=== PATIENT | female | born 1945 | race Asian ===

== ENCOUNTER 2024-02-05 10:13 | Emergency (ER) | payer OTHER ==
[~2024-02-05] VITALS: Ht 160 cm; Wt 59.0 kg
[2024-02-05 10:18] VITALS: O2SAT 98
[2024-02-05 11:16] LABS: BASOPHILS % 0.3 % (0.0-2.0); EOSINOPHILS % 0.3 % (0.0-5.0); HEMATOCRIT. 35.8 % (36.0-48.0); HEMOGLOBIN. 11.6 g/dL (12.0-16.0); LYMPHOCYTES % 7.1 % (20.0-50.0); MEAN CORPUSCULAR HEMOGLOBIN 30.1 pg (28.0-32.0); MEAN CORPUSCULAR HGB CONC 32.5 g/dL (31.0-37.0); MEAN CORPUSCULAR VOLUME 92.8 fL (81.0-99.0); MEAN PLATELET VOLUME 7.1 fl (7.4-10.4); MONOCYTES % 4.1 % (2.0-8.0); NEUTROPHILS % 88.2 % (40.0-76.0); PLATELET 177 x1000/uL (130-400); RED BLOOD CELL COUNT 3.85 mill/uL (4.2-5.4); RED CELL DISTRIBUTION WIDTH 13.5 % (11.6-14.6); WHITE BLOOD COUNT 12.3 x1000/uL (4.5-11.0)
[2024-02-05 11:20] LABS: CHLORIDE 102 mEq/L (98-107); POTASSIUM 3.9 mEq/L (3.5-5.1); SODIUM 138 mEq/L (136-145)
[2024-02-05 11:21] LABS: CALCIUM 9.8 mg/dL (8.7-10.4); CARBON DIOXIDE 27 mEq/L (21-32)
[2024-02-05 11:26] LABS: CREATININE 1.1 mg/dL (0.6-1.0); GLUCOSE 102 mg/dL (70-105); UREA NITROGEN BLOOD 11 mg/dL (9-23)
[2024-02-05 11:47] LABS: TROPONIN I HIGH SENSITIVITY 302 ng/L (3.0-34)
[2024-02-05] MEDS ORDERED: ACETAMINOPHEN 325MG TABLET PO PRN ×2 (13:15)
[2024-02-05] MEDS ORDERED: IPRATROPIUM/ALBUTEROL 0.5-3(2.5)MG/3ML NEB NEB PRN (13:15)
[2024-02-05] MEDS ORDERED: GUAIFENESIN 200MG/10ML SUGAR FREE UDC PO PRN (13:15)
[2024-02-05] MEDS ORDERED: NITROGLYCERIN 0.4MG TABLET SL SL PRN (13:15)
[2024-02-05] MEDS ORDERED: CLONIDINE 0.1MG TABLET PO PRN (13:15)
[2024-02-05] MEDS ORDERED: DOCUSATE SODIUM 100MG CAPSULE PO PRN (13:15)
[2024-02-05] MEDS ORDERED: MAGNESIUM/ALUMINUM HYDROXIDE/SIMETHICONE 30ML UDC PO PRN (13:15)
[2024-02-05] MEDS ORDERED: KETOROLAC 15MG/ML VIAL IV PRN (13:15)
[2024-02-05] MEDS ORDERED: ONDANSETRON HCL 4MG/2ML INJ IV PRN (13:15)
[2024-02-05] MEDS: ENOXAPARIN 60MG/0.6ML SYR SUBCUT NR (13:44)
[2024-02-05 14:20] LABS: IRON 62 ug/dL (50-170); TRIGLYCERIDE 61 mg/dL (0-150)
[2024-02-05 14:21] LABS: LDL CHOLESTEROL 62 mg/dL (5-100)
[2024-02-05 14:22] LABS: CHOLESTEROL 150 mg/dL (<200); HDL CHOLESTEROL 72 mg/dL (>65); TOTAL IRON BINDING CAPACITY 248 ug/dl (250-425)
[2024-02-05 14:25] LABS: T4 FREE 1.52 ng/dL (0.89-1.76); THYROID STIMULATING HORMONE 1.99 uIU/mL (0.55-4.78)
[2024-02-05 14:26] LABS: FOLIC ACID (FOLATE) SERUM > 20.00 ng/mL (>5.38)
[2024-02-05 14:28] LABS: VITAMIN B12 SERUM 816 pg/mL (211-911)
[2024-02-05 15:35] VITALS: BP 135/52; PULSE 71; RESP 16; O2SAT 98
[2024-02-05] MEDS ORDERED: FAMOTIDINE 20MG TABLET PO SCH (21:00)
[2024-02-05] MEDS ORDERED: ZOLPIDEM TARTRATE 5MG TABLET PO PRN (21:00)
[2024-02-06] MEDS ORDERED: ASPIRIN 325MG EC TABLET PO SCH (09:00)
== END 2024-02-05 15:51 | disposition left against medical advice (07) ==
LOC: ER 10:13 → EDBEDREQ 11:24 → ER 15:51
DX: I21.4 Non-ST elevation (NSTEMI) myocardial infarction (principal)
CPT/HCPCS: 99285; 93970; 70450; 71045; 80061; 80048; 82607; 82746; 83036; 83880; 84439; 83540; 83550; 84443; 85025; 84484; 36415; 93005; 96372; J1650